=== PATIENT | male | born 1955 | race African-American/Black ===

== ENCOUNTER 2018-07-01 09:45 | Emergency (ER) | payer MEDICARE, SELFPAY ==
[~2018-07-01] VITALS: Ht 172.7 cm; Wt 100.0 kg
[~2018-07-01 09:45] MED LIST: LORA2ORA5 PO; PROZ10 PO
[2018-07-01 10:22] LABS: BASOPHILS % (AUTO) 0.5 % (0.0-2.0); EOSINOPHILS % (AUTO) 2.6 % (1.0-6.0); HEMOGLOBIN 13.5 g/dL (13.5-17.5); LYMPHOCYTES # (AUTO) 2.4 K/uL (1.0-4.8); LYMPHOCYTES % (AUTO) 26.9 % (22.0-44.0); MEAN CORPUSCULAR HEMOGLOBIN 32.5 pg (26.0-34.0); MEAN CORPUSCULAR HGB CONC 34.7 G/dL (31.0-37.0); MEAN CORPUSCULAR VOLUME 94 fL (80-100); MONOCYTES # (AUTO) 0.7 K/uL (0.1-1.0); MONOCYTES % (AUTO) 8.2 % (2.0-9.0); NEUTROPHILS # (AUTO) 5.6 K/uL (1.8-7.7); NEUTROPHILS % (AUTO) 61.8 % (40.0-70.0); PLATELET COUNT (AUTO) 293 K/uL (150-450); RED BLOOD CELL COUNT(AUTO) 4.16 MIL/uL (4.50-5.90); RED CELL DISTRIBUTION WIDTH 13.4 % (11.5-14.5)
[2018-07-01 10:33] LABS: ANION GAP 12 mmol/L (8-16); CALCIUM, TOTAL 9.3 mg/dL (8.8-10.5); CARBON DIOXIDE 24 mmol/L (22-29); CHLORIDE 106 mmol/L (98-107); CREATININE 0.77 mg/dL (0.60-1.30); GLOMERULAR FILTR. RATE CALC > 60 mL/min (>60); GLUCOSE,RANDOM 117 mg/dL (70-110); POTASSIUM 4.1 mmol/L (3.5-5.1); SODIUM SERUM 142 mmol/L (136-145); UREA NITROGEN, BLOOD 14 mg/dL (7-18)
[2018-07-01] MEDS ORDERED: DIVA250T45 PO (10:37)
[2018-07-01] MEDS ORDERED: GABA-531 PO (10:37)
[2018-07-01] MEDS ORDERED: THIA100T67 PO (10:37)
[2018-07-01] MEDS ORDERED: MULT-1192 PO (10:37)
[2018-07-01] MEDS ORDERED: FLUO-191 PO (10:37)
[2018-07-01] MEDS ORDERED: RIVA20TA PO (10:37)
[2018-07-01] MEDS ORDERED: DOCU250C91 PO (10:37)
[2018-07-01] MEDS ORDERED: INSNPH SQ (10:37)
[2018-07-01] MEDS ORDERED: VITAD1000 PO (10:37)
[2018-07-01] MEDS ORDERED: LEVO150 PO (10:37)
[2018-07-01] MEDS ORDERED: DIVA500T52 PO (10:37)
[2018-07-01] MEDS ORDERED: FAMO20 PO (10:37)
[2018-07-01] MEDS ORDERED: SENN-176 PO (10:37)
[2018-07-01] MEDS ORDERED: TRAZ-220 PO (10:37)
[2018-07-01] MEDS ORDERED: BUSP10TA23 PO (10:37)
[2018-07-01] MEDS ORDERED: FOLI1 PO (10:37)
[2018-07-01] MEDS ORDERED: OS500 PO (10:37)
[2018-07-01] MEDS ORDERED: BUSP5TAB20 PO (10:37)
[2018-07-01 10:39] LABS: ALANINE AMINOTRANSFERASE 37 U/L (12-78); ALBUMIN 3.4 g/dL (3.4-5.0); ALKALINE PHOSPHATASE 58 U/L (46-116); ASPARTATE AMINOTRANSFERASE 18 U/L (15-37); BILIRUBIN,TOTAL 0.3 mg/dL (0.1-1.0); TOTAL PROTEIN, SERUM 7.1 g/dL (6.4-8.2)
[2018-07-01] MEDS ORDERED: TraZODone HCL 50 MG TABLET PO ONE (11:45)
[2018-07-01] MEDS ORDERED: LORA1TAB3 PO (11:56)
[2018-07-01] MEDS ORDERED: LEVO175T9 PO (11:56)
[2018-07-01 12:32] VITALS: BP 154/89
== END 2018-07-01 13:18 | disposition home or self-care (01) ==
LOC: EDUNIT# 09:45 → EMS 09:47
DX: F41.9 Anxiety disorder, unspecified (principal); G47.00 Insomnia, unspecified; G89.29 Other chronic pain; M25.551 Pain in right hip; I10 Essential (primary) hypertension; E11.9 Type 2 diabetes mellitus without complications; F32.9 Major depressive disorder, single episode, unspecified; K21.9 Gastro-esophageal reflux disease without esophagitis; Z87.891 Personal history of nicotine dependence; Z79.899 Other long term (current) drug therapy
CPT/HCPCS: 36415; 80053; 82962; 85025; 99284; G0480

== ENCOUNTER 2018-09-18 13:17 | Inpatient (IN) | payer MEDICARE, MEDICAID ==
[~2018-09-18] VITALS: Ht 182.9 cm; Wt 99.5 kg
[~2018-09-18 13:17] MED LIST changes: +BUSP10TA23 PO; +BUSP5TAB20 PO; +DIVA250T45 PO; +DIVA500T52 PO; +DOCU250C91 PO; +FAMO20 PO; +FLUO-191 PO; +FOLI1 PO; +GABA-531 PO; +INSNPH SQ; +LEVO175T9 PO; +LORA1TAB3 PO; -LORA2ORA5 PO; +MULT-1192 PO; +OS500 PO; -PROZ10 PO; +RIVA20TA PO; +SENN-176 PO; +THIA100T67 PO; +TRAZ-220 PO; +VITAD1000 PO
[2018-09-18] MEDS ORDERED: PERCT PO (14:17)
[2018-09-18 14:51] LABS: BASOPHILS % (AUTO) 0.4 % (0.0-2.0); EOSINOPHILS % (AUTO) 2.8 % (1.0-6.0); HEMOGLOBIN 13.6 g/dL (13.5-17.5); LYMPHOCYTES # (AUTO) 2.7 K/uL (1.0-4.8); LYMPHOCYTES % (AUTO) 32.8 % (22.0-44.0); MEAN CORPUSCULAR HEMOGLOBIN 31.8 pg (26.0-34.0); MEAN CORPUSCULAR VOLUME 94 fL (80-100); MONOCYTES # (AUTO) 0.6 K/uL (0.1-1.0); MONOCYTES % (AUTO) 6.9 % (2.0-9.0); NEUTROPHILS # (AUTO) 4.8 K/uL (1.8-7.7); NEUTROPHILS % (AUTO) 57.1 % (40.0-70.0); PLATELET COUNT (AUTO) 250 K/uL (150-450); RED BLOOD CELL COUNT(AUTO) 4.27 MIL/uL (4.50-5.90); RED CELL DISTRIBUTION WIDTH 14.4 % (11.5-14.5)
[2018-09-18 15:01] LABS: ANION GAP 10 mmol/L (8-16); CALCIUM, TOTAL 9.1 mg/dL (8.8-10.5); CARBON DIOXIDE 26 mmol/L (22-29); CHLORIDE 107 mmol/L (98-107); CREATININE 0.76 mg/dL (0.60-1.30); GLOMERULAR FILTR. RATE CALC > 60 mL/min (>60); GLUCOSE,RANDOM 110 mg/dL (70-110); POTASSIUM 3.7 mmol/L (3.5-5.1); SODIUM SERUM 143 mmol/L (136-145); UREA NITROGEN, BLOOD 14 mg/dL (7-18)
[2018-09-18 15:07] LABS: ALANINE AMINOTRANSFERASE 23 U/L (12-78); ALBUMIN 3.4 g/dL (3.4-5.0); ALKALINE PHOSPHATASE 47 U/L (46-116); ASPARTATE AMINOTRANSFERASE 13 U/L (15-37); BILIRUBIN,TOTAL 0.3 mg/dL (0.1-1.0); TOTAL PROTEIN, SERUM 6.8 g/dL (6.4-8.2); VALPROIC ACID 65 mcg/mL (50-100)
[2018-09-18 15:25] LABS: AMPHET/METH SCREEN,URINE NEGATIVE (NEGATIVE); BARBITURATE SCREEN, URINE NEGATIVE (NEGATIVE); BENZODIAZEPINES SCREEN,URINE NEGATIVE (NEGATIVE); CANNABINOID SCREEN,URINE NEGATIVE (NEGATIVE); COCAINE SCREEN,URINE NEGATIVE (NEGATIVE); METHADONE SCREEN, URINE NEGATIVE (NEGATIVE); OPIATE SCREEN,URINE NEGATIVE (NEGATIVE)
[2018-09-18 15:26] LABS: PHENCYCLIDINE SCREEN,URINE NEGATIVE (NEGATIVE)
[2018-09-18] MEDS ORDERED: ACETAMINOPHEN 325 MG TABLET PO PRN (18:00)
[2018-09-18] MEDS ORDERED: IBUPROFEN 400 MG TABLET PO PRN (18:00)
[2018-09-18] MEDS: ZOLPIDEM TARTRATE 10 MG TABLET PO PRN (23:08)
[2018-09-18] MEDS: LORazepam 2 MG TABLET PO PRN (23:08)
[2018-09-19] MEDS ORDERED: NICOTINE 14 MG/24 HOUR PATCH TD ONE (08:15)
[2018-09-19 09:10] LABS: BASOPHILS % (AUTO) 0.4 % (0.0-2.0); EOSINOPHILS % (AUTO) 1.9 % (1.0-6.0); HEMATOCRIT 41.4 % (41-53); HEMOGLOBIN 13.9 g/dL (13.5-17.5); LYMPHOCYTES # (AUTO) 2.1 K/uL (1.0-4.8); LYMPHOCYTES % (AUTO) 29.8 % (22.0-44.0); MEAN CORPUSCULAR HEMOGLOBIN 31.6 pg (26.0-34.0); MEAN CORPUSCULAR HGB CONC 33.7 G/dL (31.0-37.0); MEAN CORPUSCULAR VOLUME 94 fL (80-100); MONOCYTES # (AUTO) 0.6 K/uL (0.1-1.0); MONOCYTES % (AUTO) 8.2 % (2.0-9.0); NEUTROPHILS # (AUTO) 4.1 K/uL (1.8-7.7); NEUTROPHILS % (AUTO) 59.7 % (40.0-70.0); PLATELET COUNT (AUTO) 258 K/uL (150-450); RED BLOOD CELL COUNT(AUTO) 4.41 MIL/uL (4.50-5.90); RED CELL DISTRIBUTION WIDTH 14.2 % (11.5-14.5)
[2018-09-19 09:21] LABS: HEMOGLOBIN A1C 6.4 % (4.5-6.2)
[2018-09-19 09:58] LABS: ALANINE AMINOTRANSFERASE 21 U/L (12-78); ALBUMIN 3.4 g/dL (3.4-5.0); ALKALINE PHOSPHATASE 49 U/L (46-116); ANION GAP 12 mmol/L (8-16); ASPARTATE AMINOTRANSFERASE 13 U/L (15-37); BILIRUBIN,TOTAL 0.4 mg/dL (0.1-1.0); CALCIUM, TOTAL 8.8 mg/dL (8.8-10.5); CARBON DIOXIDE 24 mmol/L (22-29); CHLORIDE 105 mmol/L (98-107); CHOL/HDL RATIO 5.5 (4.2-7.3); CHOLESTEROL 191 mg/dL (131-200); GLOMERULAR FILTR. RATE CALC > 60 mL/min (>60); GLUCOSE,RANDOM 153 mg/dL (70-110); HDL CHOLESTEROL 35 mg/dL (40-60); LDL CHOL (CALC.) 139 mg/dL (0-130); POTASSIUM 3.7 mmol/L (3.5-5.1); SODIUM SERUM 141 mmol/L (136-145); THYROID STIMULATING HORMONE 0.45 uIU/mL (0.36-3.74); TRIGLYCERIDES 86 mg/dL (15-150); UREA NITROGEN, BLOOD 13 mg/dL (7-18)
[2018-09-19 13:32] VITALS: BP 140/84
[2018-09-19 13:54] LABS: GLUCOMETER DEV NAME(LOC) BV3N.; GLUCOSE,POINT OF CARE 139 MG/DL (70-110)
[2018-09-19] MEDS ORDERED: ONDANSETRON HCL 4 MG TABLET PO PRN (14:00)
[2018-09-19] MEDS ORDERED: ALBUTEROL SULFATE HFA 90 MCG/PUFF 8 GM INHALER IH PRN (14:00)
[2018-09-19] MEDS ORDERED: CloNIDine HCL 0.1 MG TABLET PO PRN (14:00)
[2018-09-19] MEDS ORDERED: GuaiFENesin/D-METHORPHAN [SUGAR-FREE] 200-20MG/10 ML SYRUP UDCUP PO PRN (14:00)
[2018-09-19] MEDS ORDERED: NICOTINE 14 MG/24 HOUR PATCH TD PRN (14:00)
[2018-09-19] MEDS ORDERED: ACETAMINOPHEN 325 MG TABLET PO PRN (14:00)
[2018-09-19] MEDS ORDERED: PETROLATUM,WHITE 28 GM JELLY TP PRN (14:00)
[2018-09-19] MEDS ORDERED: LOPERAMIDE HCL 2 MG CAPSULE PO PRN (14:00)
[2018-09-19] MEDS: DIVALPROEX SODIUM 500 MG ER TABLET PO SCH (15:05)
[2018-09-19] MEDS: BusPIRone HCL 10 MG TABLET PO SCH ×2 (15:05→17:08)
[2018-09-19] MEDS: FLUoxetine HCL 20 MG CAPSULE PO SCH (15:06)
[2018-09-19] MEDS: RIVAROXABAN 20 MG TABLET PO SCH (17:08)
[2018-09-19 17:22] VITALS: BP 135/79
[2018-09-19] MEDS: DIVALPROEX SODIUM 250 MG ER TABLET PO SCH (20:26)
[2018-09-19] MEDS: TraZODone HCL 100 MG TABLET PO SCH (20:26)
[2018-09-19] MEDS ORDERED: BusPIRone HCL 15 MG TABLET PO SCH (21:00)
[2018-09-20] MEDS: MAG HYDROX/AL HYDROX/SIMETH ES 30 ML SUSPENSION UDCUP PO PRN (02:03)
[2018-09-20 02:14] VITALS: BP 130/64
[2018-09-20 06:29] LABS: GLUCOMETER DEV NAME(LOC) BV3N.; GLUCOSE,POINT OF CARE 118 MG/DL (70-110)
[2018-09-20] MEDS ORDERED: LEVOTHYROXINE SODIUM 100 MCG TABLET PO SCH (06:30)
[2018-09-20] MEDS ORDERED: LEVOTHYROXINE SODIUM 75 MCG TABLET PO SCH (06:30)
[2018-09-20] MEDS: LEVOTHYROXINE SODIUM 88 MCG TABLET PO SCH (06:43)
[2018-09-20] MEDS: INSULIN NPH, HUMAN ISOPHANE 100 UNITS/ML SQ SCH (06:59)
[2018-09-20] MEDS ORDERED: PNEUMOCOCCAL VACCINE POLYVALENT 0.5 ML VIAL [PPSV23] IM ONE (07:15)
[2018-09-20 08:15] VITALS: BP 148/96
[2018-09-20] MEDS: GABAPENTIN 300 MG CAPSULE PO SCH (08:47)
[2018-09-20] MEDS: NICOTINE 14 MG/24 HOUR PATCH TD SCH (08:47)
[2018-09-20] MEDS: CHOLECALCIFEROL (VIT D3) 1,000 UNITS TABLET PO SCH (08:47)
[2018-09-20] MEDS: DIVALPROEX SODIUM 500 MG ER TABLET PO SCH (08:48)
[2018-09-20] MEDS: FOLIC ACID 1 MG TABLET PO SCH (08:48)
[2018-09-20] MEDS: BusPIRone HCL 10 MG TABLET PO SCH ×3 (08:48→16:41)
[2018-09-20] MEDS: FLUoxetine HCL 20 MG CAPSULE PO SCH (08:48)
[2018-09-20] MEDS: MULTIVITAMINS, THERAPEUTIC TABLET PO SCH (08:48)
[2018-09-20] MEDS: THIAMINE HCL 100 MG TABLET PO SCH (08:48)
[2018-09-20] MEDS: SENNA 187 MG TABLET PO SCH (08:49)
[2018-09-20] MEDS: CALCIUM OYSTER SHELL 500 MG TABLET PO SCH (08:49)
[2018-09-20 11:44] LABS: GLUCOMETER DEV NAME(LOC) BV3N.; GLUCOSE,POINT OF CARE 113 MG/DL (70-110)
[2018-09-20 16:11] VITALS: BP 137/78
[2018-09-20] MEDS: RIVAROXABAN 20 MG TABLET PO SCH (16:41)
[2018-09-20] MEDS: BusPIRone HCL 5 MG TABLET PO SCH (21:42)
[2018-09-20] MEDS: TraZODone HCL 100 MG TABLET PO SCH (21:42)
[2018-09-20] MEDS: DIVALPROEX SODIUM 250 MG ER TABLET PO SCH (21:42)
[2018-09-20] MEDS: ZOLPIDEM TARTRATE 10 MG TABLET PO PRN (21:42)
[2018-09-20 21:44] LABS: GLUCOMETER DEV NAME(LOC) 3E.I; GLUCOSE,POINT OF CARE 112 MG/DL (70-110)
[2018-09-21 00:30] VITALS: BP 113/72
[2018-09-21] MEDS: LORazepam 2 MG TABLET PO PRN (00:40)
[2018-09-21 05:24] LABS: GLUCOMETER DEV NAME(LOC) 3E.I; GLUCOSE,POINT OF CARE 117 MG/DL (70-110)
[2018-09-21] MEDS: LEVOTHYROXINE SODIUM 88 MCG TABLET PO SCH (06:36)
[2018-09-21] MEDS: INSULIN NPH, HUMAN ISOPHANE 100 UNITS/ML SQ SCH (06:57)
[2018-09-21 08:28] VITALS: BP 124/74
[2018-09-21] MEDS: NICOTINE 14 MG/24 HOUR PATCH TD SCH (09:00)
[2018-09-21] MEDS: THIAMINE HCL 100 MG TABLET PO SCH (09:34)
[2018-09-21] MEDS: GABAPENTIN 300 MG CAPSULE PO SCH (09:34)
[2018-09-21] MEDS: CALCIUM OYSTER SHELL 500 MG TABLET PO SCH (09:34)
[2018-09-21] MEDS: MULTIVITAMINS, THERAPEUTIC TABLET PO SCH (09:34)
[2018-09-21] MEDS: FLUoxetine HCL 20 MG CAPSULE PO SCH (09:35)
[2018-09-21] MEDS: BusPIRone HCL 5 MG TABLET PO SCH ×4 (09:35→20:30)
[2018-09-21] MEDS: DIVALPROEX SODIUM 500 MG ER TABLET PO SCH (09:35)
[2018-09-21] MEDS: FOLIC ACID 1 MG TABLET PO SCH (09:35)
[2018-09-21] MEDS: CHOLECALCIFEROL (VIT D3) 1,000 UNITS TABLET PO SCH (09:36)
[2018-09-21] MEDS: SENNA 187 MG TABLET PO SCH (09:38)
[2018-09-21 11:29] LABS: GLUCOMETER DEV NAME(LOC) 3E.I; GLUCOSE,POINT OF CARE 99 MG/DL (70-110)
[2018-09-21 16:04] VITALS: BP 122/78
[2018-09-21] MEDS: RIVAROXABAN 20 MG TABLET PO SCH (16:40)
[2018-09-21 16:54] LABS: GLUCOMETER DEV NAME(LOC) 3E.I; GLUCOSE,POINT OF CARE 113 MG/DL (70-110)
[2018-09-21] MEDS: ZOLPIDEM TARTRATE 10 MG TABLET PO PRN (20:30)
[2018-09-21] MEDS: DIVALPROEX SODIUM 250 MG ER TABLET PO SCH (20:30)
[2018-09-21] MEDS: MAG HYDROX/AL HYDROX/SIMETH ES 30 ML SUSPENSION UDCUP PO PRN (20:39)
[2018-09-21] MEDS: TraZODone HCL 100 MG TABLET PO SCH (20:43)
[2018-09-21 20:44] LABS: GLUCOMETER DEV NAME(LOC) 3E.I; GLUCOSE,POINT OF CARE 132 MG/DL (70-110)
[2018-09-22] MEDS: LORazepam 2 MG TABLET PO PRN (00:04)
[2018-09-22 06:16] LABS: GLUCOMETER DEV NAME(LOC) 3E.I; GLUCOSE,POINT OF CARE 109 MG/DL (70-110)
[2018-09-22] MEDS: LEVOTHYROXINE SODIUM 88 MCG TABLET PO SCH (06:31)
[2018-09-22 06:32] VITALS: BP 135/80
[2018-09-22 08:33] VITALS: BP 137/69
[2018-09-22] MEDS: NICOTINE 14 MG/24 HOUR PATCH TD SCH (09:00)
[2018-09-22] MEDS: BusPIRone HCL 5 MG TABLET PO SCH ×4 (09:33→20:06)
[2018-09-22] MEDS: CHOLECALCIFEROL (VIT D3) 1,000 UNITS TABLET PO SCH (09:33)
[2018-09-22] MEDS: GABAPENTIN 300 MG CAPSULE PO SCH (09:33)
[2018-09-22] MEDS: SENNA 187 MG TABLET PO SCH (09:33)
[2018-09-22] MEDS: FLUoxetine HCL 20 MG CAPSULE PO SCH (09:33)
[2018-09-22] MEDS: CALCIUM OYSTER SHELL 500 MG TABLET PO SCH (09:33)
[2018-09-22] MEDS: DIVALPROEX SODIUM 500 MG ER TABLET PO SCH (09:33)
[2018-09-22] MEDS: THIAMINE HCL 100 MG TABLET PO SCH (09:33)
[2018-09-22] MEDS: FOLIC ACID 1 MG TABLET PO SCH (09:33)
[2018-09-22] MEDS: MULTIVITAMINS, THERAPEUTIC TABLET PO SCH (09:34)
[2018-09-22 10:54] LABS: GLUCOMETER DEV NAME(LOC) 3E.I; GLUCOSE,POINT OF CARE 111 MG/DL (70-110)
[2018-09-22 16:03] VITALS: BP 127/81
[2018-09-22 16:40] LABS: GLUCOMETER DEV NAME(LOC) 3E.I; GLUCOSE,POINT OF CARE 108 MG/DL (70-110)
[2018-09-22] MEDS: RIVAROXABAN 20 MG TABLET PO SCH (16:44)
[2018-09-22] MEDS: TraZODone HCL 100 MG TABLET PO SCH (20:06)
[2018-09-22] MEDS: DIVALPROEX SODIUM 250 MG ER TABLET PO SCH (20:06)
[2018-09-22 20:19] LABS: GLUCOMETER DEV NAME(LOC) 3E.I; GLUCOSE,POINT OF CARE 96 MG/DL (70-110)
[2018-09-23 01:28] VITALS: BP 135/78
[2018-09-23] MEDS: LORazepam 2 MG TABLET PO PRN (01:30)
[2018-09-23] MEDS: ZOLPIDEM TARTRATE 10 MG TABLET PO PRN (01:30)
[2018-09-23 05:55] LABS: GLUCOMETER DEV NAME(LOC) 3E.I; GLUCOSE,POINT OF CARE 108 MG/DL (70-110)
[2018-09-23] MEDS: LEVOTHYROXINE SODIUM 88 MCG TABLET PO SCH (06:54)
[2018-09-23 08:00] VITALS: BP 133/77
[2018-09-23] MEDS: FLUoxetine HCL 20 MG CAPSULE PO SCH (08:33)
[2018-09-23] MEDS: CHOLECALCIFEROL (VIT D3) 1,000 UNITS TABLET PO SCH (08:33)
[2018-09-23] MEDS: GABAPENTIN 300 MG CAPSULE PO SCH (08:33)
[2018-09-23] MEDS: THIAMINE HCL 100 MG TABLET PO SCH (08:33)
[2018-09-23] MEDS: MULTIVITAMINS, THERAPEUTIC TABLET PO SCH (08:34)
[2018-09-23] MEDS: CALCIUM OYSTER SHELL 500 MG TABLET PO SCH (08:34)
[2018-09-23] MEDS: DIVALPROEX SODIUM 500 MG ER TABLET PO SCH (08:34)
[2018-09-23] MEDS: FOLIC ACID 1 MG TABLET PO SCH (08:34)
[2018-09-23] MEDS: NICOTINE 14 MG/24 HOUR PATCH TD SCH (08:34)
[2018-09-23] MEDS: BusPIRone HCL 5 MG TABLET PO SCH ×4 (08:34→20:24)
[2018-09-23] MEDS: SENNA 187 MG TABLET PO SCH (08:34)
[2018-09-23 11:54] LABS: GLUCOMETER DEV NAME(LOC) 3E.I; GLUCOSE,POINT OF CARE 119 MG/DL (70-110)
[2018-09-23] MEDS: RIVAROXABAN 20 MG TABLET PO SCH (16:34)
[2018-09-23 16:49] LABS: GLUCOMETER DEV NAME(LOC) 3E.I; GLUCOSE,POINT OF CARE 96 MG/DL (70-110)
[2018-09-23 17:02] VITALS: BP 131/74
[2018-09-23] MEDS: MAG HYDROX/AL HYDROX/SIMETH ES 30 ML SUSPENSION UDCUP PO PRN (18:35)
[2018-09-23] MEDS: TraZODone HCL 100 MG TABLET PO SCH (20:24)
[2018-09-23] MEDS: DIVALPROEX SODIUM 250 MG ER TABLET PO SCH (20:25)
[2018-09-23 20:34] LABS: GLUCOMETER DEV NAME(LOC) 3E.I; GLUCOSE,POINT OF CARE 106 MG/DL (70-110)
[2018-09-24] MEDS: ZOLPIDEM TARTRATE 10 MG TABLET PO PRN ×3 (00:03→23:33)
[2018-09-24] MEDS: LORazepam 2 MG TABLET PO PRN ×3 (00:03→23:33)
[2018-09-24 04:55] VITALS: BP 125/78
[2018-09-24 06:20] LABS: GLUCOMETER DEV NAME(LOC) 3E.I; GLUCOSE,POINT OF CARE 111 MG/DL (70-110)
[2018-09-24] MEDS: LEVOTHYROXINE SODIUM 88 MCG TABLET PO SCH (07:05)
[2018-09-24] MEDS: NICOTINE 14 MG/24 HOUR PATCH TD SCH (09:00)
[2018-09-24] MEDS: BusPIRone HCL 5 MG TABLET PO SCH ×4 (10:06→20:34)
[2018-09-24] MEDS: CHOLECALCIFEROL (VIT D3) 1,000 UNITS TABLET PO SCH (10:07)
[2018-09-24] MEDS: SENNA 187 MG TABLET PO SCH (10:07)
[2018-09-24] MEDS: FOLIC ACID 1 MG TABLET PO SCH (10:07)
[2018-09-24] MEDS: GABAPENTIN 300 MG CAPSULE PO SCH (10:07)
[2018-09-24] MEDS: FLUoxetine HCL 20 MG CAPSULE PO SCH (10:08)
[2018-09-24] MEDS: CALCIUM OYSTER SHELL 500 MG TABLET PO SCH (10:08)
[2018-09-24] MEDS: DIVALPROEX SODIUM 500 MG ER TABLET PO SCH (10:09)
[2018-09-24] MEDS: MULTIVITAMINS, THERAPEUTIC TABLET PO SCH (10:09)
[2018-09-24] MEDS: THIAMINE HCL 100 MG TABLET PO SCH (10:10)
[2018-09-24] MEDS: MAGNESIUM HYDROXIDE SUSPENSION 30 ML UDCUP PO PRN (11:03)
[2018-09-24 11:59] LABS: GLUCOMETER DEV NAME(LOC) 3E.I; GLUCOSE,POINT OF CARE 115 MG/DL (70-110)
[2018-09-24 14:10] VITALS: BP 112/72
[2018-09-24 16:23] VITALS: BP 127/76
[2018-09-24 16:44] LABS: GLUCOMETER DEV NAME(LOC) 3E.I; GLUCOSE,POINT OF CARE 100 MG/DL (70-110)
[2018-09-24] MEDS: RIVAROXABAN 20 MG TABLET PO SCH (16:47)
[2018-09-24] MEDS: DIVALPROEX SODIUM 250 MG ER TABLET PO SCH (20:35)
[2018-09-24] MEDS: TraZODone HCL 100 MG TABLET PO SCH (20:36)
[2018-09-25] MEDS: HALOPERIDOL 5 MG TABLET PO PRN ×3 (02:18→17:20)
[2018-09-25] MEDS: LORazepam 2 MG TABLET PO PRN ×3 (04:57→17:20)
[2018-09-25 05:01] VITALS: BP 114/64
[2018-09-25 05:09] LABS: GLUCOMETER DEV NAME(LOC) 3E.I; GLUCOSE,POINT OF CARE 96 MG/DL (70-110)
[2018-09-25] MEDS: LEVOTHYROXINE SODIUM 88 MCG TABLET PO SCH (06:11)
[2018-09-25] MEDS: NICOTINE 14 MG/24 HOUR PATCH TD SCH (09:00)
[2018-09-25] MEDS: SENNA 187 MG TABLET PO SCH (09:58)
[2018-09-25] MEDS: FLUoxetine HCL 20 MG CAPSULE PO SCH (09:58)
[2018-09-25] MEDS: THIAMINE HCL 100 MG TABLET PO SCH (09:58)
[2018-09-25] MEDS: BusPIRone HCL 5 MG TABLET PO SCH ×4 (09:58→20:22)
[2018-09-25] MEDS: MULTIVITAMINS, THERAPEUTIC TABLET PO SCH (09:58)
[2018-09-25] MEDS: CHOLECALCIFEROL (VIT D3) 1,000 UNITS TABLET PO SCH (09:58)
[2018-09-25] MEDS: DIVALPROEX SODIUM 500 MG ER TABLET PO SCH (09:59)
[2018-09-25] MEDS: CALCIUM OYSTER SHELL 500 MG TABLET PO SCH (09:59)
[2018-09-25] MEDS: FOLIC ACID 1 MG TABLET PO SCH (09:59)
[2018-09-25] MEDS: GABAPENTIN 300 MG CAPSULE PO SCH (09:59)
[2018-09-25] MEDS: RIVAROXABAN 20 MG TABLET PO SCH (17:19)
[2018-09-25] MEDS: TraZODone HCL 100 MG TABLET PO SCH (20:17)
[2018-09-25] MEDS: DIVALPROEX SODIUM 250 MG ER TABLET PO SCH (20:18)
[2018-09-25] MEDS: ZOLPIDEM TARTRATE 10 MG TABLET PO PRN (20:21)
[2018-09-26] MEDS: LORazepam 2 MG TABLET PO PRN (00:29)
[2018-09-26] MEDS: HALOPERIDOL 5 MG TABLET PO PRN (00:29)
[2018-09-26 05:34] LABS: GLUCOMETER DEV NAME(LOC) 3E.I; GLUCOSE,POINT OF CARE 113 MG/DL (70-110)
[2018-09-26 06:02] VITALS: BP 127/79
[2018-09-26] MEDS: LEVOTHYROXINE SODIUM 88 MCG TABLET PO SCH (06:17)
[2018-09-26 08:23] VITALS: BP 117/68
[2018-09-26] MEDS: NICOTINE 14 MG/24 HOUR PATCH TD SCH (09:00)
[2018-09-26] MEDS: DIVALPROEX SODIUM 500 MG ER TABLET PO SCH (10:45)
[2018-09-26] MEDS: FOLIC ACID 1 MG TABLET PO SCH (10:45)
[2018-09-26] MEDS: CALCIUM OYSTER SHELL 500 MG TABLET PO SCH (10:45)
[2018-09-26] MEDS: FLUoxetine HCL 20 MG CAPSULE PO SCH (10:45)
[2018-09-26] MEDS: BusPIRone HCL 5 MG TABLET PO SCH ×4 (10:45→21:13)
[2018-09-26] MEDS: MULTIVITAMINS, THERAPEUTIC TABLET PO SCH (10:45)
[2018-09-26] MEDS: GABAPENTIN 300 MG CAPSULE PO SCH (10:45)
[2018-09-26] MEDS: THIAMINE HCL 100 MG TABLET PO SCH (10:45)
[2018-09-26] MEDS: CHOLECALCIFEROL (VIT D3) 1,000 UNITS TABLET PO SCH (10:46)
[2018-09-26] MEDS: SENNA 187 MG TABLET PO SCH (10:46)
[2018-09-26] MEDS: MAG HYDROX/AL HYDROX/SIMETH ES 30 ML SUSPENSION UDCUP PO PRN (10:56)
[2018-09-26 11:24] LABS: GLUCOMETER DEV NAME(LOC) 3E.I; GLUCOSE,POINT OF CARE 93 MG/DL (70-110)
[2018-09-26] MEDS: DOCUSATE SODIUM 100 MG CAPSULE PO PRN (14:08)
[2018-09-26 16:04] VITALS: BP 119/72
[2018-09-26] MEDS: RIVAROXABAN 20 MG TABLET PO SCH (16:34)
[2018-09-26 16:40] LABS: GLUCOMETER DEV NAME(LOC) 3E.I; GLUCOSE,POINT OF CARE 127 MG/DL (70-110)
[2018-09-26] MEDS: ZOLPIDEM TARTRATE 10 MG TABLET PO PRN (21:11)
[2018-09-26] MEDS: TraZODone HCL 100 MG TABLET PO SCH (21:13)
[2018-09-26] MEDS: DIVALPROEX SODIUM 250 MG ER TABLET PO SCH (21:14)
[2018-09-26 21:34] LABS: GLUCOMETER DEV NAME(LOC) 3E.I; GLUCOSE,POINT OF CARE 119 MG/DL (70-110)
[2018-09-27 00:39] VITALS: BP 123/73
[2018-09-27 05:44] LABS: GLUCOMETER DEV NAME(LOC) 3E.I; GLUCOSE,POINT OF CARE 99 MG/DL (70-110)
[2018-09-27] MEDS: LEVOTHYROXINE SODIUM 88 MCG TABLET PO SCH (06:47)
[2018-09-27 08:46] VITALS: BP 125/75
[2018-09-27] MEDS: NICOTINE 14 MG/24 HOUR PATCH TD SCH (09:00)
[2018-09-27] MEDS: MULTIVITAMINS, THERAPEUTIC TABLET PO SCH (09:38)
[2018-09-27] MEDS: DIVALPROEX SODIUM 500 MG ER TABLET PO SCH (09:38)
[2018-09-27] MEDS: THIAMINE HCL 100 MG TABLET PO SCH (09:38)
[2018-09-27] MEDS: FOLIC ACID 1 MG TABLET PO SCH (09:38)
[2018-09-27] MEDS: CALCIUM OYSTER SHELL 500 MG TABLET PO SCH (09:38)
[2018-09-27] MEDS: CHOLECALCIFEROL (VIT D3) 1,000 UNITS TABLET PO SCH (09:38)
[2018-09-27] MEDS: GABAPENTIN 300 MG CAPSULE PO SCH (09:38)
[2018-09-27] MEDS: FLUoxetine HCL 20 MG CAPSULE PO SCH (09:38)
[2018-09-27] MEDS: BusPIRone HCL 5 MG TABLET PO SCH ×4 (09:38→20:27)
[2018-09-27] MEDS: SENNA 187 MG TABLET PO SCH (09:38)
[2018-09-27 11:40] LABS: GLUCOMETER DEV NAME(LOC) 3E.I; GLUCOSE,POINT OF CARE 106 MG/DL (70-110)
[2018-09-27] MEDS: MAGNESIUM HYDROXIDE SUSPENSION 30 ML UDCUP PO PRN (13:48)
[2018-09-27] MEDS: DOCUSATE SODIUM 100 MG CAPSULE PO PRN (13:48)
[2018-09-27 16:02] VITALS: BP 124/77
[2018-09-27] MEDS: RIVAROXABAN 20 MG TABLET PO SCH (17:11)
[2018-09-27 17:24] LABS: GLUCOMETER DEV NAME(LOC) 3E.I; GLUCOSE,POINT OF CARE 101 MG/DL (70-110)
[2018-09-27] MEDS: DIVALPROEX SODIUM 250 MG ER TABLET PO SCH (20:30)
[2018-09-27] MEDS: TraZODone HCL 100 MG TABLET PO SCH (20:30)
[2018-09-27] MEDS: ZOLPIDEM TARTRATE 10 MG TABLET PO PRN (20:31)
[2018-09-27 20:49] LABS: GLUCOMETER DEV NAME(LOC) 3E.I; GLUCOSE,POINT OF CARE 140 MG/DL (70-110)
[2018-09-28 02:14] VITALS: BP 117/79
[2018-09-28 06:10] LABS: GLUCOMETER DEV NAME(LOC) 3E.I; GLUCOSE,POINT OF CARE 112 MG/DL (70-110)
[2018-09-28] MEDS: LEVOTHYROXINE SODIUM 88 MCG TABLET PO SCH (06:56)
[2018-09-28 08:00] VITALS: BP 126/78
[2018-09-28] MEDS: CALCIUM OYSTER SHELL 500 MG TABLET PO SCH (08:29)
[2018-09-28] MEDS: HALOPERIDOL 5 MG TABLET PO PRN (08:29)
[2018-09-28] MEDS: THIAMINE HCL 100 MG TABLET PO SCH (08:29)
[2018-09-28] MEDS: LORazepam 2 MG TABLET PO PRN (08:30)
[2018-09-28] MEDS: BusPIRone HCL 5 MG TABLET PO SCH ×4 (08:30→20:32)
[2018-09-28] MEDS: FOLIC ACID 1 MG TABLET PO SCH (08:30)
[2018-09-28] MEDS: MULTIVITAMINS, THERAPEUTIC TABLET PO SCH (08:30)
[2018-09-28] MEDS: FLUoxetine HCL 20 MG CAPSULE PO SCH (08:30)
[2018-09-28] MEDS: DIVALPROEX SODIUM 500 MG ER TABLET PO SCH (08:30)
[2018-09-28] MEDS: GABAPENTIN 300 MG CAPSULE PO SCH (08:30)
[2018-09-28] MEDS: CHOLECALCIFEROL (VIT D3) 1,000 UNITS TABLET PO SCH (08:30)
[2018-09-28] MEDS: SENNA 187 MG TABLET PO SCH (08:32)
[2018-09-28] MEDS: NICOTINE 14 MG/24 HOUR PATCH TD SCH (08:49)
[2018-09-28 11:34] LABS: GLUCOMETER DEV NAME(LOC) 3E.I; GLUCOSE,POINT OF CARE 147 MG/DL (70-110)
[2018-09-28 16:09] VITALS: BP 127/71
[2018-09-28] MEDS: RIVAROXABAN 20 MG TABLET PO SCH (16:22)
[2018-09-28 17:10] LABS: GLUCOMETER DEV NAME(LOC) 3E.I; GLUCOSE,POINT OF CARE 120 MG/DL (70-110)
[2018-09-28] MEDS: ZOLPIDEM TARTRATE 10 MG TABLET PO PRN (20:32)
[2018-09-28] MEDS: DIVALPROEX SODIUM 250 MG ER TABLET PO SCH (20:32)
[2018-09-28] MEDS: TraZODone HCL 100 MG TABLET PO SCH (20:32)
[2018-09-28 20:54] LABS: GLUCOMETER DEV NAME(LOC) 3E.I; GLUCOSE,POINT OF CARE 122 MG/DL (70-110)
[2018-09-29 05:44] LABS: GLUCOMETER DEV NAME(LOC) 3E.I; GLUCOSE,POINT OF CARE 98 MG/DL (70-110)
[2018-09-29] MEDS: LEVOTHYROXINE SODIUM 88 MCG TABLET PO SCH (06:23)
[2018-09-29] MEDS: THIAMINE HCL 100 MG TABLET PO SCH (09:00)
[2018-09-29] MEDS: DIVALPROEX SODIUM 500 MG ER TABLET PO SCH (09:00)
[2018-09-29] MEDS: FLUoxetine HCL 20 MG CAPSULE PO SCH (09:00)
[2018-09-29] MEDS: MULTIVITAMINS, THERAPEUTIC TABLET PO SCH (09:00)
[2018-09-29] MEDS: NICOTINE 14 MG/24 HOUR PATCH TD SCH (09:00)
[2018-09-29] MEDS: GABAPENTIN 300 MG CAPSULE PO SCH (09:00)
[2018-09-29] MEDS: CALCIUM OYSTER SHELL 500 MG TABLET PO SCH (09:00)
[2018-09-29] MEDS: FOLIC ACID 1 MG TABLET PO SCH (09:00)
[2018-09-29] MEDS: SENNA 187 MG TABLET PO SCH (09:00)
[2018-09-29] MEDS: CHOLECALCIFEROL (VIT D3) 1,000 UNITS TABLET PO SCH (11:22)
[2018-09-29] MEDS: BusPIRone HCL 5 MG TABLET PO SCH ×4 (11:22→20:58)
[2018-09-29 12:09] LABS: GLUCOMETER DEV NAME(LOC) 3E.I; GLUCOSE,POINT OF CARE 94 MG/DL (70-110)
[2018-09-29 16:33] VITALS: BP 120/77
[2018-09-29 16:35] LABS: GLUCOMETER DEV NAME(LOC) 3E.I; GLUCOSE,POINT OF CARE 124 MG/DL (70-110)
[2018-09-29] MEDS: RIVAROXABAN 20 MG TABLET PO SCH (17:00)
[2018-09-29] MEDS: TraZODone HCL 100 MG TABLET PO SCH (20:58)
[2018-09-29] MEDS: DIVALPROEX SODIUM 250 MG ER TABLET PO SCH (20:58)
[2018-09-29 21:34] LABS: GLUCOMETER DEV NAME(LOC) 3E.I; GLUCOSE,POINT OF CARE 132 MG/DL (70-110)
[2018-09-30] MEDS: ZOLPIDEM TARTRATE 10 MG TABLET PO PRN
[2018-09-30] MEDS: LORazepam 2 MG TABLET PO PRN
[2018-09-30 00:10] VITALS: BP 121/74
[2018-09-30 06:10] LABS: GLUCOMETER DEV NAME(LOC) 3E.I; GLUCOSE,POINT OF CARE 110 MG/DL (70-110)
[2018-09-30] MEDS: LEVOTHYROXINE SODIUM 88 MCG TABLET PO SCH (06:50)
[2018-09-30 08:20] VITALS: BP 127/78
[2018-09-30] MEDS: NICOTINE 14 MG/24 HOUR PATCH TD SCH (09:00)
[2018-09-30] MEDS: MULTIVITAMINS, THERAPEUTIC TABLET PO SCH (10:31)
[2018-09-30] MEDS: FLUoxetine HCL 20 MG CAPSULE PO SCH (10:31)
[2018-09-30] MEDS: GABAPENTIN 300 MG CAPSULE PO SCH (10:31)
[2018-09-30] MEDS: FOLIC ACID 1 MG TABLET PO SCH (10:31)
[2018-09-30] MEDS: CALCIUM OYSTER SHELL 500 MG TABLET PO SCH (10:31)
[2018-09-30] MEDS: SENNA 187 MG TABLET PO SCH (10:31)
[2018-09-30] MEDS: CHOLECALCIFEROL (VIT D3) 1,000 UNITS TABLET PO SCH (10:31)
[2018-09-30] MEDS: THIAMINE HCL 100 MG TABLET PO SCH (10:31)
[2018-09-30] MEDS: DIVALPROEX SODIUM 500 MG ER TABLET PO SCH (10:32)
[2018-09-30] MEDS: BusPIRone HCL 5 MG TABLET PO SCH ×4 (11:30→20:30)
[2018-09-30 11:35] LABS: GLUCOMETER DEV NAME(LOC) 3E.I; GLUCOSE,POINT OF CARE 152 MG/DL (70-110)
[2018-09-30] MEDS ORDERED: TraZODone HCL 50 MG TABLET PO PRN (14:15)
[2018-09-30 16:05] VITALS: BP 123/76
[2018-09-30] MEDS: RIVAROXABAN 20 MG TABLET PO SCH (16:50)
[2018-09-30 17:30] LABS: GLUCOMETER DEV NAME(LOC) 3E.C; GLUCOSE,POINT OF CARE 118 MG/DL (70-110)
[2018-09-30] MEDS: DIVALPROEX SODIUM 250 MG ER TABLET PO SCH (20:30)
[2018-09-30] MEDS: TraZODone HCL 100 MG TABLET PO SCH (20:30)
[2018-09-30 20:41] LABS: GLUCOMETER DEV NAME(LOC) 3E.I; GLUCOSE,POINT OF CARE 188 MG/DL (70-110)
[2018-10-01 05:50] LABS: GLUCOMETER DEV NAME(LOC) 3E.I; GLUCOSE,POINT OF CARE 110 MG/DL (70-110)
[2018-10-01] MEDS: LEVOTHYROXINE SODIUM 88 MCG TABLET PO SCH (06:58)
[2018-10-01] MEDS: MULTIVITAMINS, THERAPEUTIC TABLET PO SCH (08:07)
[2018-10-01] MEDS: THIAMINE HCL 100 MG TABLET PO SCH (08:07)
[2018-10-01] MEDS: BusPIRone HCL 5 MG TABLET PO SCH ×4 (08:07→21:17)
[2018-10-01] MEDS: CHOLECALCIFEROL (VIT D3) 1,000 UNITS TABLET PO SCH (08:07)
[2018-10-01] MEDS: CALCIUM OYSTER SHELL 500 MG TABLET PO SCH (08:07)
[2018-10-01] MEDS: FOLIC ACID 1 MG TABLET PO SCH (08:07)
[2018-10-01] MEDS: DIVALPROEX SODIUM 500 MG ER TABLET PO SCH (08:07)
[2018-10-01] MEDS: GABAPENTIN 300 MG CAPSULE PO SCH (08:07)
[2018-10-01] MEDS: SENNA 187 MG TABLET PO SCH (08:07)
[2018-10-01] MEDS: FLUoxetine HCL 20 MG CAPSULE PO SCH (08:07)
[2018-10-01] MEDS: DOCUSATE SODIUM 100 MG CAPSULE PO PRN (08:08)
[2018-10-01 08:30] VITALS: BP 126/74
[2018-10-01] MEDS: NICOTINE 14 MG/24 HOUR PATCH TD SCH (09:00)
[2018-10-01 11:30] LABS: GLUCOMETER DEV NAME(LOC) 3E.I; GLUCOSE,POINT OF CARE 108 MG/DL (70-110)
[2018-10-01 16:30] VITALS: BP 137/78
[2018-10-01] MEDS: RIVAROXABAN 20 MG TABLET PO SCH (16:40)
[2018-10-01 17:14] LABS: GLUCOMETER DEV NAME(LOC) 3E.I; GLUCOSE,POINT OF CARE 132 MG/DL (70-110)
[2018-10-01] MEDS: LORazepam 2 MG TABLET PO PRN (17:29)
[2018-10-01] MEDS: DIVALPROEX SODIUM 250 MG ER TABLET PO SCH (21:17)
[2018-10-01] MEDS: TraZODone HCL 100 MG TABLET PO SCH (21:17)
[2018-10-01] MEDS: MAG HYDROX/AL HYDROX/SIMETH ES 30 ML SUSPENSION UDCUP PO PRN (21:17)
[2018-10-01 22:20] LABS: GLUCOMETER DEV NAME(LOC) 3E.I; GLUCOSE,POINT OF CARE 166 MG/DL (70-110)
[2018-10-02 06:19] LABS: GLUCOMETER DEV NAME(LOC) 3E.I; GLUCOSE,POINT OF CARE 119 MG/DL (70-110)
[2018-10-02 06:25] LABS: ANION GAP 6 mmol/L (8-16); CALCIUM, TOTAL 8.9 mg/dL (8.8-10.5); CARBON DIOXIDE 26 mmol/L (22-29); CHLORIDE 106 mmol/L (98-107); CREATININE 0.76 mg/dL (0.60-1.30); GLOMERULAR FILTR. RATE CALC > 60 mL/min (>60); GLUCOSE,RANDOM 113 mg/dL (70-110); POTASSIUM 3.9 mmol/L (3.5-5.1); SODIUM SERUM 138 mmol/L (136-145); UREA NITROGEN, BLOOD 14 mg/dL (7-18)
[2018-10-02] MEDS: LEVOTHYROXINE SODIUM 88 MCG TABLET PO SCH (06:50)
[2018-10-02 08:30] VITALS: BP 137/71
[2018-10-02] MEDS: NICOTINE 14 MG/24 HOUR PATCH TD SCH (09:00)
[2018-10-02] MEDS: FLUoxetine HCL 20 MG CAPSULE PO SCH (09:31)
[2018-10-02] MEDS: GABAPENTIN 300 MG CAPSULE PO SCH (09:31)
[2018-10-02] MEDS: CHOLECALCIFEROL (VIT D3) 1,000 UNITS TABLET PO SCH (09:31)
[2018-10-02] MEDS: THIAMINE HCL 100 MG TABLET PO SCH (09:31)
[2018-10-02] MEDS: BusPIRone HCL 5 MG TABLET PO SCH ×2 (09:31→12:45)
[2018-10-02] MEDS: MULTIVITAMINS, THERAPEUTIC TABLET PO SCH (09:31)
[2018-10-02] MEDS: SENNA 187 MG TABLET PO SCH (09:31)
[2018-10-02] MEDS: CALCIUM OYSTER SHELL 500 MG TABLET PO SCH (09:32)
[2018-10-02] MEDS: FOLIC ACID 1 MG TABLET PO SCH (09:32)
[2018-10-02] MEDS: DIVALPROEX SODIUM 500 MG ER TABLET PO SCH (09:32)
[2018-10-02 11:40] LABS: GLUCOMETER DEV NAME(LOC) 3E.I; GLUCOSE,POINT OF CARE 131 MG/DL (70-110)
== END 2018-10-02 15:15 | DRG 885 ==
LOC: EMS 13:20 → B3A 09-19 11:54 → 3EI 09-19 12:53 → B3A 09-19 13:00 → 3EI 09-20 13:10
PROVIDERS: ADMIT Psychiatry & Neurology Psychiatry; ATTEND Psychiatry & Neurology Psychiatry
DX: F25.1 Schizoaffective disorder, depressive type (principal); N39.0 Urinary tract infection, site not specified; R45.851 Suicidal ideations; K21.9 Gastro-esophageal reflux disease without esophagitis; I10 Essential (primary) hypertension; E55.9 Vitamin D deficiency, unspecified; K59.00 Constipation, unspecified; E03.9 Hypothyroidism, unspecified; R32 Unspecified urinary incontinence; M16.10 Unilateral primary osteoarthritis, unspecified hip; E11.649 Type 2 diabetes mellitus with hypoglycemia without coma; F10.20 Alcohol dependence, uncomplicated; F41.9 Anxiety disorder, unspecified; R15.9 Full incontinence of feces; R41.843 Psychomotor deficit; R45.87 Impulsiveness; Z87.891 Personal history of nicotine dependence; Z86.73 Personal history of transient ischemic attack (TIA), and cerebral infarction without residual deficits; Z74.01 Bed confinement status
CPT/HCPCS: 83036; 84443; 87081; 97162; 97530; G0480; J1815